=== PATIENT | female | born 1985 | race Caucasian/White ===

== ENCOUNTER 2017-11-21 10:05 | Emergency (ER) | payer MEDICAID ==
[2017-11-21] MEDS ORDERED: SOD CHLORIDE 0.9% 1,000 ML IV (11:24)
[2017-11-21] MEDS ORDERED: METOCLOPRAMIDE 10 MG INJ IV (11:30)
[2017-11-21 12:06] LABS: ADD MAN DIFF? NO
[2017-11-21 12:15] LABS: WHITE BLOOD COUNT 8.3 10^3/ul (4.8-10.8)
[2017-11-21 12:15] LABS: BASOPHILS % 0.2 % (0.0-2.0); HEMATOCRIT 35.4 % (37.0-47.0); LYMPHOCYTES # 1.5 10^3/ul (0.8-2.9); LYMPHOCYTES % 18.1 % (15.0-51.0); MEAN CORPUSCULAR HEMOGLOBIN 31.4 pg (29.0-33.0); MEAN CORPUSCULAR HGB CONC 33.9 g/dl (32.0-37.0); MEAN CORPUSCULAR VOLUME 92.7 fl (82.0-101.0); MEAN PLATELET VOLUME 12.2 fl (7.4-10.4); MONOCYTE # 0.7 10^3/ul (0.3-0.9); NEUTROPHIL # 6.1 10^3/ul (1.6-7.5); NEUTROPHILS % 73.3 % (39.0-77.0); PLATELET COUNT 222 10^3/UL (140-415); RED BLOOD COUNT 3.82 10^6/ul (4.20-5.40); RED CELL DISTRIBUTION WIDTH 13.8 % (11.5-14.5)
[2017-11-21 12:34] LABS: ALANINE AMINOTRANSFERASE 41 IU/L (13-69); ALBUMIN 4.9 g/dl (3.3-4.9); ALBUMIN/GLOBULIN RATIO 1.36; ALKALINE PHOSPHATASE 58 IU/L (42-121); ANION GAP 20 (8-16); ASPARTATE AMINO TRANSFERASE 23 IU/L (15-46); BLOOD UREA NITROGEN 7 mg/dl (7-20); CALCIUM 9.5 mg/dl (8.4-10.2); CARBON DIOXIDE 22 mmol/L (21-31); CHLORIDE 103 mmol/L (97-110); CREATININE 0.46 mg/dl (0.44-1.00); GLUCOSE 78 mg/dl (70-220); LIPASE 218 U/L (23-300); POTASSIUM 3.8 mmol/L (3.5-5.1); SODIUM 141 mmol/L (135-144); TOTAL PROTEIN 8.5 g/dl (6.1-8.1)
[2017-11-21 12:41] LABS: ADD UMIC YES; UR ASCORBIC ACID 40 mg/dL (NEGATIVE); UR BACTERIA FEW /HPF (NONE SEEN); UR BILIRUBIN (Dip) NEGATIVE (NEGATIVE); UR BLOOD (Dip) NEGATIVE (NEGATIVE); UR CLARITY CLOUDY (CLEAR); UR COLOR AMBER (YELLOW); UR GLUCOSE (Dip) 1+ mg/dL (NEGATIVE); UR KETONES (Dip) 2+ mg/dL (NEGATIVE); UR LEUKOCYTE ESTERASE (Dip) 1+ Leu/ul (NEGATIVE); UR MUCUS MANY /HPF (NONE SEEN); UR NITRITE (Dip) NEGATIVE (NEGATIVE); UR NONSQUAMOUS EPITHELIAL CELL 1 /HPF (NONE SEEN); UR RBC 12 /HPF (0-5); UR SPECIFIC GRAVITY (Dip) 1.034 (1.003-1.030); UR SQUAMOUS EPITHELIAL CELL MODERATE /HPF (FEW); UR TOTAL PROTEIN (Dip) 2+ mg/dl (NEGATIVE); UR UROBILINOGEN (Dip) NEGATIVE (NEGATIVE); UR WBC 7 /HPF (0-5)
[2017-11-21] MEDS: METOCLOPRAMIDE 10 MG INJ IM (13:02)
[2017-11-21] MEDS: CEFTRIAXONE 1 GM INJ IM (14:20)
[2017-11-21] MEDS: LIDOCAINE 1% (MDV) 10 ML INJ INJ (14:20)
== END 2017-11-21 15:48 | disposition home or self-care (01) ==
LOC: FTE 10:05
DX: O21.9 Vomiting of pregnancy, unspecified (principal); O23.41 Unspecified infection of urinary tract in pregnancy, first trimester; R10.2 Pelvic and perineal pain; Z3A.01 Less than 8 weeks gestation of pregnancy
CPT/HCPCS: 36415; 76817; 80053; 81001; 83690; 84702; 85025; 86900; 86901; 96372; 99285-25

== ENCOUNTER 2018-06-29 11:00 | Inpatient (IN) | payer MEDICAID ==
[2018-06-29] MEDS ORDERED: IBUPROFEN 600 MG TAB PO (18:00)
[2018-06-29] MEDS ORDERED: LIDOCAINE 1% (MPF) 30 ML INJ INJ (18:00)
[2018-06-29] MEDS ORDERED: CARBOPROST 250 MCG INJ IM (18:00)
[2018-06-29] MEDS ORDERED: OXYTOCIN 30 UNITS/LR 500 ML IV ×2 (18:00)
[2018-06-29] MEDS ORDERED: MISOPROSTOL 200 MCG TAB PR (18:00)
[2018-06-29] MEDS ORDERED: METHYLERGONOVINE 0.2 MG INJ IM (18:00)
[2018-06-29 19:02] LABS: ADD MAN DIFF? NO
[2018-06-29 19:03] LABS: WHITE BLOOD COUNT 7.2 10^3/ul (4.8-10.8)
[2018-06-29 19:04] LABS: BASOPHILS % 0.1 % (0.0-2.0); EOSINOPHILS % 0.3 % (0.0-7.0); HEMATOCRIT 36.6 % (37.0-47.0); LYMPHOCYTES # 1.5 10^3/ul (0.8-2.9); LYMPHOCYTES % 20.2 % (15.0-51.0); MEAN CORPUSCULAR HEMOGLOBIN 32.2 pg (29.0-33.0); MEAN CORPUSCULAR HGB CONC 32.8 g/dl (32.0-37.0); MEAN CORPUSCULAR VOLUME 98.1 fl (82.0-101.0); MEAN PLATELET VOLUME 12.1 fl (7.4-10.4); MONOCYTE # 0.4 10^3/ul (0.3-0.9); MONOCYTES % 5.5 % (0.0-11.0); NEUTROPHIL # 5.3 10^3/ul (1.6-7.5); NEUTROPHILS % 73.5 % (39.0-77.0); PLATELET COUNT 224 10^3/UL (140-415); RED BLOOD COUNT 3.73 10^6/ul (4.20-5.40); RED CELL DISTRIBUTION WIDTH 13.6 % (11.5-14.5)
[2018-06-29 19:19] LABS: INR 0.83; PROTIME 11.5 Sec (11.9-14.9); PT RATIO 0.9
[2018-06-29 19:20] LABS: PARTIAL THROMBOPLASTIN TIME 24.7 Sec (23.0-35.0)
[2018-06-29 19:53] LABS: HEPATITIS B SURFACE ANTIGEN NEGATIVE (NEGATIVE)
[2018-06-29] MEDS: MISOPROSTOL 50 MCG CAPSULE PO (19:59)
[2018-06-29] MEDS: LACTATED RINGER'S 1,000 ML IV* (19:59)
[2018-06-29] MEDS: LIDOCAINE 0.5% (SDV) 50 ML INJ INFIL (20:30)
[2018-06-29] MEDS ORDERED: MISOPROSTOL 50 MCG CAPSULE PO ×2 (21:00)
[2018-06-30] MEDS: MISOPROSTOL 50 MCG CAPSULE PO ×2 (00:12→03:45)
[2018-06-30] MEDS: LACTATED RINGER'S 1,000 ML IV* ×2 (03:45→08:03)
[2018-06-30] MEDS ORDERED: METHYLERGONOVINE 0.2 MG INJ (07:00)
[2018-06-30] MEDS ORDERED: CARBOPROST 250 MCG INJ (07:00)
[2018-06-30] MEDS ORDERED: LIDOCAINE 0.5% (SDV) 50 ML INJ (08:57)
[2018-06-30] MEDS ORDERED: BUTORPHANOL 2 MG INJ (09:05)
[2018-06-30] MEDS: BUTORPHANOL 2 MG INJ IV (09:13)
[2018-06-30] MEDS ORDERED: TERBUTALINE 1 ML (10:22)
[2018-06-30] MEDS ORDERED: CEFAZOLIN 2 GM/50 ML (PMX) 50 ML IVPB (10:26)
[2018-06-30] MEDS ORDERED: METOCLOPRAMIDE 10 MG INJ (10:27)
[2018-06-30] MEDS ORDERED: FAMOTIDINE 20 MG INJ (10:27)
[2018-06-30] MEDS ORDERED: ONDANSETRON 4 MG INJ (10:27)
[2018-06-30] MEDS ORDERED: LIDOCAINE 2% (SDV) 5 ML INJ (10:30)
[2018-06-30] MEDS ORDERED: IPRATROPIUM (NEB) 0.5 MG/2.5 ML AMP HHN ×2 (10:30→11:30)
[2018-06-30] MEDS ORDERED: DIPHENHYDRAMINE 50 MG INJ IV ×3 (10:30→11:30)
[2018-06-30] MEDS ORDERED: FENTAnyl 50 MCG/ML VIAL IV ×4 (10:30→11:30)
[2018-06-30] MEDS ORDERED: HYDROmorphONE 1 MG/5 ML IV SYRINGE IV ×6 (10:30→11:30)
[2018-06-30] MEDS: CITRIC ACID/NA CITRATE 30 ML CUP PO (10:30)
[2018-06-30] MEDS ORDERED: PROPOFOL 20 ML (10:30)
[2018-06-30] MEDS ORDERED: OXYTOCIN 30 UNITS/LR 500 ML IV ×2 (10:30→16:00)
[2018-06-30] MEDS ORDERED: CITRIC ACID/NA CITRATE 30 ML CUP (10:30)
[2018-06-30] MEDS ORDERED: ROCURONIUM 50 MG INJ (10:30)
[2018-06-30] MEDS ORDERED: SUCCINYLCHOLINE CHLORIDE 100 MG/5 ML SYG IV (10:30)
[2018-06-30] MEDS ORDERED: OXYTOCIN 10 UNIT INJ ×2 (10:32→11:38)
[2018-06-30] MEDS: ONDANSETRON 4 MG INJ IV ×2 (10:33→10:34)
[2018-06-30] MEDS ORDERED: HYDROmorphONE 2 MG/ML SYG (10:33)
[2018-06-30] MEDS: FAMOTIDINE 20 MG INJ IV (10:34)
[2018-06-30] MEDS: TERBUTALINE 1 MG/ML INJ SC (10:35)
[2018-06-30] MEDS: METOCLOPRAMIDE 10 MG INJ IV (10:35)
[2018-06-30] MEDS: CEFAZOLIN 2 GM/50 ML (PMX) 50 ML IV (10:37)
[2018-06-30] MEDS: AZITHROMYCIN 500MG/NS (PMX) 250 ML IVPB (11:00)
[2018-06-30] MEDS ORDERED: KETOROLAC 30 MG INJ IV ×2 (11:30)
[2018-06-30] MEDS ORDERED: HYDROmorphONE 0.5 MG/0.5 ML SYG IV ×2 (11:30)
[2018-06-30] MEDS ORDERED: ONDANSETRON 4 MG INJ IV ×2 (11:30)
[2018-06-30] MEDS ORDERED: LEVALBUTEROL (NEB) 1.25 MG/0.5 ML AMP HHN (11:30)
[2018-06-30] MEDS ORDERED: NALOXONE (0.4 MG/ML) INJ IV (11:30)
[2018-06-30] MEDS ORDERED: KETOROLAC 15 MG INJ IV ×2 (11:30)
[2018-06-30] MEDS ORDERED: ZOLPIDEM 5 MG TAB PO (11:30)
[2018-06-30 11:35] LABS: AADO2 Cord Arterial 60.3 mmHg; CBA Base Excess -6.3 mmol/L; CBA COHb 0.4 %; CBA Oxygen Sat 18.4 mmHG; CBA Total Hemglobin 13.8 g/dl; Cord Blood Arterial pO2 15.2 mmHG (15.0-45.0); MODE ROOM AIR; MetHgb Cord Arterial 1.9 %; Sample Type CBA; Site CORD
[2018-06-30] MEDS: KETOROLAC 30 MG INJ IV (11:59)
[2018-06-30] MEDS: HYDROmorphONE 0.2 MG/ML PCA IV (12:17)
[2018-06-30] MEDS: OXYTOCIN 30 UNITS/LR 500 ML IV ×2 (12:26→16:55)
[2018-06-30 15:22] LABS: RAPID PLASMA REAGIN NONREACTIVE (NR)
[2018-06-30] MEDS ORDERED: MISOPROSTOL 200 MCG TAB PR (16:00)
[2018-06-30] MEDS ORDERED: CARBOPROST 250 MCG INJ IM (16:00)
[2018-06-30] MEDS ORDERED: METHYLERGONOVINE 0.2 MG INJ IM (16:00)
[2018-06-30] MEDS ORDERED: OXYCODONE/ACETAMINOPHEN (5/325) TAB PO ×2 (16:00)
[2018-06-30] MEDS: SENNA/DOCUSATE NA (8.6MG/50MG) TAB PO (21:43)
[2018-06-30] MEDS: LACTATED RINGER'S 1,000 ML IV (23:55)
[2018-07-01] MEDS: LACTATED RINGER'S 1,000 ML IV ×3 (02:27→15:55)
[2018-07-01 06:19] LABS: ADD MAN DIFF? NO
[2018-07-01 06:40] LABS: WHITE BLOOD COUNT 12.6 10^3/ul (4.8-10.8)
[2018-07-01 06:40] LABS: BASOPHILS % 0.2 % (0.0-2.0); EOSINOPHILS % 0.1 % (0.0-7.0); HEMATOCRIT 27.1 % (37.0-47.0); HEMOGLOBIN 9.1 g/dl (12.0-16.0); LYMPHOCYTES # 1.5 10^3/ul (0.8-2.9); LYMPHOCYTES % 12.1 % (15.0-51.0); MEAN CORPUSCULAR HEMOGLOBIN 32.9 pg (29.0-33.0); MEAN CORPUSCULAR HGB CONC 33.6 g/dl (32.0-37.0); MEAN CORPUSCULAR VOLUME 97.8 fl (82.0-101.0); MEAN PLATELET VOLUME 12.1 fl (7.4-10.4); MONOCYTE # 0.9 10^3/ul (0.3-0.9); MONOCYTES % 7.2 % (0.0-11.0); PLATELET COUNT 204 10^3/UL (140-415); RED BLOOD COUNT 2.77 10^6/ul (4.20-5.40); RED CELL DISTRIBUTION WIDTH 13.6 % (11.5-14.5)
[2018-07-01] MEDS: SENNA/DOCUSATE NA (8.6MG/50MG) TAB PO ×2 (09:10→21:49)
[2018-07-01] MEDS: FERROUS SULFATE (EC) 325 MG TAB PO ×2 (13:19→21:49)
[2018-07-01] MEDS: IBUPROFEN 800 MG TAB PO (21:49)
[2018-07-02] MEDS: IBUPROFEN 800 MG TAB PO ×3 (05:45→22:22)
[2018-07-02] MEDS: SENNA/DOCUSATE NA (8.6MG/50MG) TAB PO ×2 (09:00→20:33)
[2018-07-02] MEDS: FERROUS SULFATE (EC) 325 MG TAB PO ×3 (09:30→20:32)
[2018-07-02] MEDS: LANOLIN 7 GM TUBE TOP (19:41)
[2018-07-03] MEDS: IBUPROFEN 800 MG TAB PO ×2 (05:51→14:05)
[2018-07-03] MEDS: SENNA/DOCUSATE NA (8.6MG/50MG) TAB PO (09:00)
[2018-07-03] MEDS: FERROUS SULFATE (EC) 325 MG TAB PO ×2 (09:08→13:04)
[2018-07-03] MEDS: DIPHTH/TET/ACEL PERTUSS (ADULT) 0.5 ML VIAL IM* (14:57)
== END 2018-07-03 18:30 | disposition home or self-care (01) | DRG 788 ==
LOC: OBT 11:00 → L-D 06-30 01:29 → PP1 06-30 17:20 → OBT 14:05 → L-D 14:05
PROVIDERS: Obstetrics & Gynecology
PROC: 10D00Z1 Extraction of Products of Conception, Low, Open Approach (ICD-10-PCS; principal; 2018-06-30 12:30)
PROC: 3E033VJ Introduction of Other Hormone into Peripheral Vein, Percutaneous Approach (ICD-10-PCS; 2018-06-30 12:30)
DX: O48.0 Post-term pregnancy (principal); Z3A.40 40 weeks gestation of pregnancy; O76 Abnormality in fetal heart rate and rhythm complicating labor and delivery; O62.1 Secondary uterine inertia; Z37.0 Single live birth
CPT/HCPCS: 36600; 76815; 76818; 82803; 85025; 85610; 85730; 86592; 86850; 86900; 86901; 87340; 88307; 90686; 90715; 99464